=== PATIENT | male | born 1975 | race Caucasian/White ===

== ENCOUNTER 2021-04-29 09:35 | Inpatient (IN) ==
[2021-04-29] MEDS ORDERED: *HR* Rocuronium Bromide 50 MG/5 ML VIAL IVP ONE (10:13)
[2021-04-29] MEDS ORDERED: *HR* Midazolam HCl 5 MG/5 ML VIAL IVP ONE (10:13)
[2021-04-29] MEDS ORDERED: Naloxone 0.4 MG/ML INJ IVP PRN (12:44)
[2021-04-29] MEDS: Cisatracurium 200 MG in 0.9 % Sodium Chloride 180 ML IVC SCH ×2 (12:45→20:56)
[2021-04-29] MEDS: FentaNYL (PF) 1,000 MCG/100 ML IV.SOLN IVC SCH ×2 (12:45→21:32)
[2021-04-29 13:15] LABS: Basophils % 0.2 %; Eosinophils # 0.1 K/mcL (0.0-0.6); Eosinophils % 0.3 %; Hematocrit 45.3 % (37.5-50.1); Hemoglobin 15.4 g/dL (12.9-16.9); Immature Granulocytes % 2.3 % (0-4); Lymphocytes # 1.1 K/mcL (0.6-4.6); Lymphocytes % 6.9 %; Mean Corpuscular Hemoglobin 30.4 pg (28.0-33.3); Mean Corpuscular Volume 89.5 fL (83.0-100.0); Mean Platelet Volume 10.1 fL (9.4-12.4); Monocytes # 1.2 K/mcL (0.0-1.3); Monocytes % 7.1 %; Neutrophils # 13.7 K/mcL (1.6-8.9); Nucleated Red Blood Cells 0.1 /100 WBC (0); Platelet Count 180 K/mcL (140-400); Red Blood Count 5.06 M/mcL (4.19-5.50); Red Cell Distribution Width 13.4 % (11.5-14.5); Segmented Neutrophils % 83.2 %; White Blood Count 16.4 K/mcL (4.3-11.1)
[2021-04-29 13:18] LABS: ABG Base Excess -2 mEq/L (-2 to 3); ABG HCO3 30 mEq/L (21-27); ABG Oxygen Saturation 99 % (95-98); ABG PCO2 82 mmHg (35-45); ABG PH 7.17 pH Units (7.32-7.45); ABG PO2 196 mmHg (85-104); ABG TCO2 32 mEq/L (20-26); Blood Gas Modality VC; Blood Gas VT 450 cc
[2021-04-29 13:23] LABS: VBG Ionized Calcium 1.16 mmol/L (1.15-1.35)
[2021-04-29 13:29] LABS: INR 1.2; Prothrombin Time 13.9 Seconds (9.4-12.1)
[2021-04-29 13:34] LABS: Alanine Aminotransferase 42 Units/L (7-52); Albumin 3.4 g/dL (3.5-5.7); Albumin/Globulin Ratio 1.2 (1.1-2.2); Aspartate Amino Transferase 77 Units/L (13-39); BUN/Creatinine Ratio 22 (6-26); Bilirubin,Total 1.3 mg/dL (0.3-1.0); Blood Urea Nitrogen 15 mg/dL (6-20); Calcium 8.2 mg/dL (8.6-10.3); Carbon Dioxide 28 mEq/L (23-29); Chloride 98 mEq/L (98-107); Globulin 2.8 g/dL (2.4-3.5); Glucose 222 mg/dL (70-105); Magnesium 1.7 mg/dL (1.6-2.6); Osmolality,Calculated 288 (280-300); Phosphorous 4.1 mg/dL (2.7-4.5); Potassium 3.9 mEq/L (3.5-5.1); Sodium 135 mEq/L (136-145); Total Protein 6.2 g/dL (6.4-8.9); eGFR For African Americans > 60 (> 60); eGFR For Non-African Americans > 60 (> 60)
[2021-04-29 14:45] LABS: Alkaline Phosphatase 88 Units/L (34-104)
[2021-04-29] MEDS: Pantoprazole 40 MG VIAL IVP SCH (15:00)
[2021-04-29] MEDS: Dexamethasone Sodium Phos/PF 10 MG/ML VIAL IVP SCH (15:01)
[2021-04-29 16:02] LABS: C-Reactive Protein 55 mg/L (Less than 10)
[2021-04-29] MEDS: Furosemide 40 MG/4 ML VIAL IVP SCH (17:35)
[2021-04-29] MEDS: *HR* Enoxaparin 40 MG/0.4 ML SYRINGE SQ SCH (17:36)
[2021-04-29 17:45] LABS: ABG Base Excess 1 mEq/L (-2 to 3); ABG HCO3 29 mEq/L (21-27); ABG Oxygen Saturation 100 % (95-98); ABG PCO2 60 mmHg (35-45); ABG PO2 260 mmHg (85-104); ABG TCO2 31 mEq/L (20-26); Blood Gas Modality AF; Blood Gas VT 450 cc
[2021-04-30] MEDS ORDERED: Artificial Tears SOLN 15 ML BOTTLE BOTH EYES PRN (00:20)
[2021-04-30] MEDS ORDERED: Dextrose Gel 15 GM/37.5 ML TUBE PO PRN ×2 (00:20)
[2021-04-30] MEDS ORDERED: D5% in Water 1,000 ML IVC PRN (00:20)
[2021-04-30] MEDS ORDERED: *HR* Dextrose 50 % in Water (Vial) 50 ML VIAL IVP PRN (00:20)
[2021-04-30] MEDS: Insulin LISPRO 300 UNITS/3 ML VIAL SUBQ SCH ×4 (01:26→23:43)
[2021-04-30 04:08] LABS: VBG Ionized Calcium 1.21 mmol/L (1.15-1.35)
[2021-04-30 04:25] LABS: Alanine Aminotransferase 32 Units/L (7-52); Albumin 3.2 g/dL (3.5-5.7); Albumin/Globulin Ratio 1.2 (1.1-2.2); Aspartate Amino Transferase 33 Units/L (13-39); BUN/Creatinine Ratio 29 (6-26); Bilirubin,Total 1.4 mg/dL (0.3-1.0); Blood Urea Nitrogen 23 mg/dL (6-20); C-Reactive Protein 113 mg/L (Less than 10); Calcium 8.7 mg/dL (8.6-10.3); Carbon Dioxide 28 mEq/L (23-29); Chloride 99 mEq/L (98-107); Globulin 2.7 g/dL (2.4-3.5); Glucose 252 mg/dL (70-105); Magnesium 2.5 mg/dL (1.6-2.6); Osmolality,Calculated 292 (280-300); Phosphorous 3.8 mg/dL (2.7-4.5); Potassium 4.4 mEq/L (3.5-5.1); Sodium 135 mEq/L (136-145); Total Protein 5.9 g/dL (6.4-8.9); eGFR For African Americans > 60 (> 60); eGFR For Non-African Americans > 60 (> 60)
[2021-04-30 04:36] LABS: ABG Base Excess 2 mEq/L (-2 to 3); ABG HCO3 29 mEq/L (21-27); ABG Oxygen Saturation 95 % (95-98); ABG PCO2 52 mmHg (35-45); ABG PH 7.35 pH Units (7.32-7.45); ABG PO2 81 mmHg (85-104); ABG TCO2 31 mEq/L (20-26); Blood Gas VT 450 cc
[2021-04-30 04:49] LABS: Alkaline Phosphatase 70 Units/L (34-104)
[2021-04-30 05:43] LABS: Red Blood Count 4.61 M/mcL (4.19-5.50)
[2021-04-30 05:44] LABS: Hematocrit 41.1 % (37.5-50.1); Hemoglobin 14.2 g/dL (12.9-16.9); Mean Corpuscular HGB Conc 34.5 g/dL (31.6-35.5); Mean Corpuscular Hemoglobin 30.8 pg (28.0-33.3); Mean Corpuscular Volume 89.2 fL (83.0-100.0); Mean Platelet Volume 10.6 fL (9.4-12.4); Platelet Count 171 K/mcL (140-400); Red Cell Distribution Width 13.3 % (11.5-14.5)
[2021-04-30] MEDS: Cisatracurium 200 MG in 0.9 % Sodium Chloride 180 ML IVC SCH ×2 (05:45→23:09)
[2021-04-30] MEDS: *HR* Enoxaparin 40 MG/0.4 ML SYRINGE SQ SCH ×3 (05:47→17:15)
[2021-04-30] MEDS: Artificial Tears SOLN 15 ML BOTTLE BOTH EYES SCH ×6 (05:47→23:42)
[2021-04-30] MEDS: Pantoprazole 40 MG VIAL IVP SCH (08:08)
[2021-04-30] MEDS: Furosemide 40 MG/4 ML VIAL IVP SCH ×2 (08:08→17:02)
[2021-04-30] MEDS: Dexamethasone Sodium Phos/PF 10 MG/ML VIAL IVP SCH (08:08)
[2021-04-30] MEDS: Chlorhexidine Rinse 15 ML MOUTHWASH MM SCH ×2 (08:08→20:26)
[2021-04-30] MEDS: FentaNYL (PF) 1,000 MCG/100 ML IV.SOLN IVC SCH ×2 (08:44→18:56)
[2021-04-30] MEDS ORDERED: Insulin LISPRO 300 UNITS/3 ML VIAL SUBQ SCH (12:00)
[2021-04-30] MEDS: Remdesivir 100 MG in 0.9 % Sodium Chloride 100 ML IVPB SCH (13:03)
[2021-04-30] MEDS ORDERED: Ipratropium 1 PUFF INHALER IH PRN (14:32)
[2021-04-30] MEDS: Norepinephrine 4 MG/254 ML IV.SOLN IVC SCH ×3 (17:15→21:30)
[2021-05-01] MEDS: Artificial Tears SOLN 15 ML BOTTLE BOTH EYES SCH ×6 (03:23→23:29)
[2021-05-01 04:25] LABS: Hemoglobin 14.8 g/dL (12.9-16.9); Mean Corpuscular HGB Conc 33.6 g/dL (31.6-35.5); Mean Corpuscular Hemoglobin 30.1 pg (28.0-33.3); Mean Corpuscular Volume 89.4 fL (83.0-100.0); Mean Platelet Volume 10.7 fL (9.4-12.4); Platelet Count 219 K/mcL (140-400); Red Blood Count 4.92 M/mcL (4.19-5.50); Red Cell Distribution Width 13.2 % (11.5-14.5); White Blood Count 11.7 K/mcL (4.3-11.1)
[2021-05-01 04:35] LABS: Alanine Aminotransferase 33 Units/L (7-52); Albumin 3.3 g/dL (3.5-5.7); Albumin/Globulin Ratio 1.1 (1.1-2.2); Alkaline Phosphatase 70 Units/L (34-104); Aspartate Amino Transferase 27 Units/L (13-39); BUN/Creatinine Ratio 40 (6-26); Blood Urea Nitrogen 45 mg/dL (6-20); C-Reactive Protein 70 mg/L (Less than 10); Calcium 9.1 mg/dL (8.6-10.3); Carbon Dioxide 30 mEq/L (23-29); Chloride 101 mEq/L (98-107); Globulin 2.9 g/dL (2.4-3.5); Glucose 214 mg/dL (70-105); Magnesium 2.8 mg/dL (1.6-2.6); Osmolality,Calculated 304 (280-300); Phosphorous 4.3 mg/dL (2.7-4.5); Potassium 4.3 mEq/L (3.5-5.1); Sodium 138 mEq/L (136-145); Total Protein 6.2 g/dL (6.4-8.9); eGFR For African Americans > 60 (> 60); eGFR For Non-African Americans > 60 (> 60)
[2021-05-01 04:35] LABS: VBG Ionized Calcium 1.25 mmol/L (1.15-1.35)
[2021-05-01] MEDS: FentaNYL (PF) 1,000 MCG/100 ML IV.SOLN IVC SCH ×3 (05:03→23:29)
[2021-05-01 05:22] LABS: ABG Base Excess 3 mEq/L (-2 to 3); ABG HCO3 30 mEq/L (21-27); ABG Oxygen Saturation 99 % (95-98); ABG PCO2 56 mmHg (35-45); ABG PH 7.34 pH Units (7.32-7.45); ABG PO2 159 mmHg (85-104); ABG TCO2 32 mEq/L (20-26); Blood Gas VT 450 cc
[2021-05-01] MEDS: Cisatracurium 200 MG in 0.9 % Sodium Chloride 180 ML IVC SCH ×3 (05:55→20:26)
[2021-05-01] MEDS: Insulin LISPRO 300 UNITS/3 ML VIAL SUBQ SCH ×4 (06:39→18:05)
[2021-05-01] MEDS: *HR* Enoxaparin 40 MG/0.4 ML SYRINGE SQ SCH ×2 (07:30→17:10)
[2021-05-01] MEDS: Pantoprazole 40 MG VIAL IVP SCH (07:43)
[2021-05-01] MEDS: Chlorhexidine Rinse 15 ML MOUTHWASH MM SCH ×2 (07:44→20:23)
[2021-05-01] MEDS: Dexamethasone Sodium Phos/PF 10 MG/ML VIAL IVP SCH (07:44)
[2021-05-01] MEDS: Furosemide 40 MG/4 ML VIAL IVP SCH (07:44)
[2021-05-01] MEDS: Remdesivir 100 MG in 0.9 % Sodium Chloride 100 ML IVPB SCH (11:33)
[2021-05-01] MEDS ORDERED: Insulin LISPRO 300 UNITS/3 ML VIAL SUBQ SCH (18:12)
[2021-05-01] MEDS: Insulin DETEMIR 100 UNIT/ML X5UNITS SUBQ SCH (20:23)
[2021-05-02] MEDS: Insulin LISPRO 300 UNITS/3 ML VIAL SUBQ SCH ×6 (00:59→19:37)
[2021-05-02 03:58] LABS: ABG Base Excess 4 mEq/L (-2 to 3); ABG HCO3 32 mEq/L (21-27); ABG Oxygen Saturation 99 % (95-98); ABG PCO2 59 mmHg (35-45); ABG PH 7.34 pH Units (7.32-7.45); ABG PO2 170 mmHg (85-104); ABG TCO2 33 mEq/L (20-26); Blood Gas VT 450 cc
[2021-05-02 04:04] LABS: Basophils % 0.2 %; Hematocrit 43.1 % (37.5-50.1); Hemoglobin 14.5 g/dL (12.9-16.9); Lymphocytes # 1.1 K/mcL (0.6-4.6); Mean Corpuscular HGB Conc 33.6 g/dL (31.6-35.5); Mean Corpuscular Hemoglobin 30.4 pg (28.0-33.3); Mean Corpuscular Volume 90.4 fL (83.0-100.0); Mean Platelet Volume 10.7 fL (9.4-12.4); Monocytes # 1.5 K/mcL (0.0-1.3); Monocytes % 12.2 %; Neutrophils # 9.7 K/mcL (1.6-8.9); Platelet Count 241 K/mcL (140-400); Red Blood Count 4.77 M/mcL (4.19-5.50); Red Cell Distribution Width 13.2 % (11.5-14.5); Segmented Neutrophils % 77.6 %; White Blood Count 12.5 K/mcL (4.3-11.1)
[2021-05-02] MEDS: Cisatracurium 200 MG in 0.9 % Sodium Chloride 180 ML IVC SCH (04:07)
[2021-05-02 04:10] LABS: VBG Ionized Calcium 1.29 mmol/L (1.15-1.35)
[2021-05-02 04:12] LABS: INR 1.1; Prothrombin Time 13.1 Seconds (9.4-12.1)
[2021-05-02 04:23] LABS: Alanine Aminotransferase 36 Units/L (7-52); Albumin 3.2 g/dL (3.5-5.7); Albumin/Globulin Ratio 1.1 (1.1-2.2); Alkaline Phosphatase 63 Units/L (34-104); Aspartate Amino Transferase 22 Units/L (13-39); BUN/Creatinine Ratio 45 (6-26); Bilirubin,Total 0.9 mg/dL (0.3-1.0); Blood Urea Nitrogen 39 mg/dL (6-20); C-Reactive Protein 31 mg/L (Less than 10); Calcium 9.1 mg/dL (8.6-10.3); Carbon Dioxide 31 mEq/L (23-29); Chloride 103 mEq/L (98-107); Globulin 2.8 g/dL (2.4-3.5); Glucose 274 mg/dL (70-105); Magnesium 2.6 mg/dL (1.6-2.6); Osmolality,Calculated 309 (280-300); Potassium 4.4 mEq/L (3.5-5.1); Sodium 140 mEq/L (136-145); eGFR For African Americans > 60 (> 60); eGFR For Non-African Americans > 60 (> 60)
[2021-05-02 04:29] LABS: Platelet Estimate Normal (Normal); Reactive Lymphocytes Present (Not Present)
[2021-05-02] MEDS: Artificial Tears SOLN 15 ML BOTTLE BOTH EYES SCH ×5 (05:00→19:50)
[2021-05-02] MEDS: *HR* Enoxaparin 40 MG/0.4 ML SYRINGE SQ SCH ×2 (05:03→17:26)
[2021-05-02] MEDS: FentaNYL (PF) 1,000 MCG/100 ML IV.SOLN IVC SCH ×3 (05:12→17:28)
[2021-05-02] MEDS: Chlorhexidine Rinse 15 ML MOUTHWASH MM SCH ×2 (08:04→19:20)
[2021-05-02] MEDS: Pantoprazole 40 MG VIAL IVP SCH (08:05)
[2021-05-02] MEDS: Dexamethasone Sodium Phos/PF 10 MG/ML VIAL IVP SCH (08:05)
[2021-05-02] MEDS: Insulin DETEMIR 100 UNIT/ML X5UNITS SUBQ SCH ×2 (08:06→21:51)
[2021-05-02] MEDS ORDERED: Furosemide 40 MG/4 ML VIAL IVP SCH (09:00)
[2021-05-02] MEDS: Norepinephrine 4 MG/254 ML IV.SOLN IVC SCH (15:54)
[2021-05-02] MEDS ORDERED: FentaNYL (PF) 1,000 MCG/100 ML IV.SOLN IVC SCH (18:05)
[2021-05-02] MEDS ORDERED: Dexmedetomidine HCl 400 MCG/100 ML MLS IVC ONE (18:42)
[2021-05-02] MEDS: Dexmedetomidine HCl 400 MCG/100 ML MLS IVC SCH (18:49)
[2021-05-02] MEDS: FentaNYL (PF) 2,500 MCG/50 ML IV.SOLN IVC SCH (23:09)
[2021-05-03] MEDS: Insulin LISPRO 300 UNITS/3 ML VIAL SUBQ SCH ×6 (00:13→20:49)
[2021-05-03] MEDS: Artificial Tears SOLN 15 ML BOTTLE BOTH EYES SCH ×6 (00:14→20:14)
[2021-05-03] MEDS: Dexmedetomidine HCl 400 MCG/100 ML MLS IVC SCH ×3 (02:45→20:44)
[2021-05-03 03:57] LABS: ABG Base Excess 6 mEq/L (-2 to 3); ABG HCO3 32 mEq/L (21-27); ABG Oxygen Saturation 90 % (95-98); ABG PCO2 50 mmHg (35-45); ABG PH 7.41 pH Units (7.32-7.45); ABG PO2 58 mmHg (85-104); ABG TCO2 33 mEq/L (20-26); Blood Gas VT 450 cc
[2021-05-03 04:12] LABS: VBG Ionized Calcium 1.27 mmol/L (1.15-1.35)
[2021-05-03 04:20] LABS: Hematocrit 39.6 % (37.5-50.1); Hemoglobin 13.4 g/dL (12.9-16.9); Mean Corpuscular HGB Conc 33.8 g/dL (31.6-35.5); Mean Corpuscular Hemoglobin 30.7 pg (28.0-33.3); Mean Corpuscular Volume 90.6 fL (83.0-100.0); Mean Platelet Volume 11.1 fL (9.4-12.4); Platelet Count 253 K/mcL (140-400); Red Blood Count 4.37 M/mcL (4.19-5.50); Red Cell Distribution Width 12.9 % (11.5-14.5); White Blood Count 11.1 K/mcL (4.3-11.1)
[2021-05-03 04:35] LABS: Alanine Aminotransferase 34 Units/L (7-52); Albumin/Globulin Ratio 1.2 (1.1-2.2); Alkaline Phosphatase 54 Units/L (34-104); Aspartate Amino Transferase 24 Units/L (13-39); BUN/Creatinine Ratio 42 (6-26); Bilirubin,Total 0.8 mg/dL (0.3-1.0); Blood Urea Nitrogen 58 mg/dL (6-20); C-Reactive Protein 16 mg/L (Less than 10); Carbon Dioxide 32 mEq/L (23-29); Chloride 103 mEq/L (98-107); Globulin 2.6 g/dL (2.4-3.5); Glucose 240 mg/dL (70-105); Magnesium 2.7 mg/dL (1.6-2.6); Osmolality,Calculated 318 (280-300); Potassium 4.4 mEq/L (3.5-5.1); Sodium 142 mEq/L (136-145); Total Protein 5.6 g/dL (6.4-8.9); eGFR For African Americans > 60 (> 60); eGFR For Non-African Americans 55 (> 60)
[2021-05-03] MEDS: *HR* Enoxaparin 40 MG/0.4 ML SYRINGE SQ SCH ×2 (05:40→17:15)
[2021-05-03] MEDS: FentaNYL (PF) 2,500 MCG/50 ML IV.SOLN IVC SCH ×2 (06:26→19:37)
[2021-05-03] MEDS: Pantoprazole 40 MG VIAL IVP SCH (10:10)
[2021-05-03] MEDS: Chlorhexidine Rinse 15 ML MOUTHWASH MM SCH ×2 (10:10→20:14)
[2021-05-03] MEDS: Dexamethasone Sodium Phos/PF 10 MG/ML VIAL IVP SCH (10:10)
[2021-05-03] MEDS: Insulin DETEMIR 100 UNIT/ML X5UNITS SUBQ SCH ×2 (10:25→20:14)
[2021-05-03 11:12] LABS: Triglycerides 727 mg/dL (< 150)
[2021-05-03] MEDS ORDERED: D10% in Water 500 ML IVC PRN (11:51)
[2021-05-03] MEDS: Norepinephrine 4 MG/254 ML IV.SOLN IVC SCH (12:40)
[2021-05-03] MEDS: Clinimix E 5%-15% SOLUTION 2,000 ML with MVI, adult with vitamin K 10 ML IVC SCH (16:33)
[2021-05-04] MEDS: Artificial Tears SOLN 15 ML BOTTLE BOTH EYES SCH ×7 (00:44→23:05)
[2021-05-04] MEDS: Insulin LISPRO 300 UNITS/3 ML VIAL SUBQ SCH ×5 (00:45→11:23)
[2021-05-04 04:03] LABS: Hematocrit 40.6 % (37.5-50.1); Hemoglobin 13.5 g/dL (12.9-16.9); Mean Corpuscular HGB Conc 33.3 g/dL (31.6-35.5); Mean Corpuscular Hemoglobin 30.4 pg (28.0-33.3); Mean Corpuscular Volume 91.4 fL (83.0-100.0); Mean Platelet Volume 11.1 fL (9.4-12.4); Platelet Count 237 K/mcL (140-400); Red Blood Count 4.44 M/mcL (4.19-5.50); Red Cell Distribution Width 12.9 % (11.5-14.5)
[2021-05-04 04:16] LABS: ABG Base Excess 5 mEq/L (-2 to 3); ABG HCO3 31 mEq/L (21-27); ABG Oxygen Saturation 90 % (95-98); ABG PCO2 49 mmHg (35-45); ABG PH 7.41 pH Units (7.32-7.45); ABG PO2 59 mmHg (85-104); ABG TCO2 33 mEq/L (20-26); Blood Gas VT 450 cc
[2021-05-04] MEDS: *HR* Enoxaparin 40 MG/0.4 ML SYRINGE SQ SCH ×2 (05:58→17:04)
[2021-05-04 06:43] LABS: Alanine Aminotransferase 30 Units/L (7-52); Albumin/Globulin Ratio 1.1 (1.1-2.2); Alkaline Phosphatase 51 Units/L (34-104); Aspartate Amino Transferase 19 Units/L (13-39); BUN/Creatinine Ratio 43 (6-26); Bilirubin,Total 0.9 mg/dL (0.3-1.0); Blood Urea Nitrogen 55 mg/dL (6-20); C-Reactive Protein 11 mg/L (Less than 10); Calcium 9.1 mg/dL (8.6-10.3); Carbon Dioxide 32 mEq/L (23-29); Chloride 105 mEq/L (98-107); Globulin 2.8 g/dL (2.4-3.5); Glucose 318 mg/dL (70-105); Magnesium 2.8 mg/dL (1.6-2.6); Osmolality,Calculated 323 (280-300); Phosphorous 4.6 mg/dL (2.7-4.5); Potassium 4.5 mEq/L (3.5-5.1); Sodium 143 mEq/L (136-145); Total Protein 5.8 g/dL (6.4-8.9); eGFR For African Americans > 60 (> 60); eGFR For Non-African Americans > 60 (> 60)
[2021-05-04] MEDS ORDERED: Furosemide 40 MG/4 ML VIAL IVP ONE (07:12)
[2021-05-04] MEDS: Dexamethasone Sodium Phos/PF 10 MG/ML VIAL IVP SCH (07:26)
[2021-05-04] MEDS: Pantoprazole 40 MG VIAL IVP SCH ×2 (07:27→20:11)
[2021-05-04] MEDS: Chlorhexidine Rinse 15 ML MOUTHWASH MM SCH ×2 (07:27→20:11)
[2021-05-04] MEDS: Insulin DETEMIR 100 UNIT/ML X5UNITS SUBQ SCH (09:04)
[2021-05-04] MEDS ORDERED: Insulin DETEMIR 100 UNIT/ML X5UNITS SUBQ ONE (11:00)
[2021-05-04] MEDS: Metoclopramide 10 MG/2 ML VIAL IVP SCH ×3 (11:21→23:04)
[2021-05-04] MEDS: Dexmedetomidine HCl 400 MCG/100 ML MLS IVC SCH ×3 (16:14→21:30)
[2021-05-04] MEDS ORDERED: Clinimix 5%-20% SOLUTION 2,000 ML with MVI, adult with vitamin K 10 ML, Sodium Phosph... IVC SCH (17:00)
[2021-05-04] MEDS: Norepinephrine 4 MG/254 ML IV.SOLN IVC SCH (17:47)
[2021-05-04] MEDS: Clinimix E 5%-15% SOLUTION 2,000 ML with MVI, adult with vitamin K 10 ML IVC SCH (17:59)
[2021-05-04] MEDS: FentaNYL (PF) 2,500 MCG/50 ML IV.SOLN IVC SCH (19:01)
[2021-05-04 19:07] LABS: VBG Ionized Calcium 1.31 mmol/L (1.15-1.35)
[2021-05-04] MEDS: Docusate Oral Soln 100 MG/10 ML UDC GTUBE SCH (20:11)
[2021-05-04] MEDS ORDERED: Insulin DETEMIR 100 UNIT/ML X5UNITS SUBQ SCH (21:00)
[2021-05-05] MEDS: Dexmedetomidine HCl 400 MCG/100 ML MLS IVC SCH ×5 (02:25→23:38)
[2021-05-05 03:09] LABS: Hematocrit 42.7 % (37.5-50.1); Mean Corpuscular HGB Conc 32.8 g/dL (31.6-35.5); Mean Corpuscular Volume 91.6 fL (83.0-100.0); Mean Platelet Volume 11.2 fL (9.4-12.4); Platelet Count 236 K/mcL (140-400); Red Blood Count 4.66 M/mcL (4.19-5.50); Red Cell Distribution Width 12.7 % (11.5-14.5); White Blood Count 11.6 K/mcL (4.3-11.1)
[2021-05-05] MEDS: Artificial Tears SOLN 15 ML BOTTLE BOTH EYES SCH ×6 (03:09→23:18)
[2021-05-05 03:29] LABS: Alanine Aminotransferase 36 Units/L (7-52); Albumin 3.2 g/dL (3.5-5.7); Albumin/Globulin Ratio 1.1 (1.1-2.2); Alkaline Phosphatase 53 Units/L (34-104); Aspartate Amino Transferase 26 Units/L (13-39); BUN/Creatinine Ratio 44 (6-26); Bilirubin,Total 0.8 mg/dL (0.3-1.0); Blood Urea Nitrogen 51 mg/dL (6-20); C-Reactive Protein 7 mg/L (Less than 10); Calcium 9.6 mg/dL (8.6-10.3); Carbon Dioxide 36 mEq/L (23-29); Chloride 105 mEq/L (98-107); Glucose 194 mg/dL (70-105); Magnesium 2.8 mg/dL (1.6-2.6); Osmolality,Calculated 319 (280-300); Potassium 4.2 mEq/L (3.5-5.1); Sodium 145 mEq/L (136-145); Total Protein 6.2 g/dL (6.4-8.9); eGFR For African Americans > 60 (> 60); eGFR For Non-African Americans > 60 (> 60)
[2021-05-05 05:00] LABS: ABG Base Excess -1 mEq/L (-2 to 3); ABG HCO3 23 mEq/L (21-27); ABG Oxygen Saturation 94 % (95-98); ABG PCO2 35 mmHg (35-45); ABG PH 7.43 pH Units (7.32-7.45); ABG PO2 68 mmHg (85-104); ABG TCO2 24 mEq/L (20-26); Blood Gas VT 450 cc
[2021-05-05] MEDS: *HR* Enoxaparin 40 MG/0.4 ML SYRINGE SQ SCH ×2 (05:00→18:00)
[2021-05-05] MEDS: Metoclopramide 10 MG/2 ML VIAL IVP SCH ×4 (05:01→23:19)
[2021-05-05] MEDS: Chlorhexidine Rinse 15 ML MOUTHWASH MM SCH ×2 (07:44→19:56)
[2021-05-05] MEDS: Docusate Oral Soln 100 MG/10 ML UDC GTUBE SCH ×2 (07:44→19:57)
[2021-05-05] MEDS: Pantoprazole 40 MG VIAL IVP SCH ×2 (07:44→19:57)
[2021-05-05] MEDS: Dexamethasone Sodium Phos/PF 10 MG/ML VIAL IVP SCH (07:44)
[2021-05-05] MEDS: FentaNYL (PF) 2,500 MCG/50 ML IV.SOLN IVC SCH ×2 (07:47→19:53)
[2021-05-05 08:17] LABS: Phosphorous 5.1 mg/dL (2.7-4.5)
[2021-05-05 14:23] LABS: Bacteria,Urine Few per hpf (None-Few); Bilirubin,Urine Negative (Negative); Blood,Urine Small (Negative); Clarity,Urine Turbid (Clear); Color,Urine Yellow (Yellow); Glucose,Urine (UA) Normal (Normal); Hyaline Casts,Urine Many per lpf (None Seen); Ketones,Urine Negative (Negative); Leukocyte Esterase,Urine Negative (Negative); Mucus,Urine Few per lpf (None-Few); Nitrite,Urine Negative (Negative); Protein,Urine 30 mg/dL (Neg-Trace); Specific Gravity,Urine 1.029 (1.010-1.025); Squamous Epithelial Cell,Urine Few per hpf (None-Few)
[2021-05-05] MEDS ORDERED: Furosemide 40 MG/4 ML VIAL IVP ONE (14:44)
[2021-05-05] MEDS: Norepinephrine 4 MG/254 ML IV.SOLN IVC SCH (15:06)
[2021-05-05] MEDS: Cisatracurium 200 MG in 0.9 % Sodium Chloride 180 ML IVC SCH (15:07)
[2021-05-05] MEDS: Piperacillin/Tazobactam 3.375 GM in 0.9 % Sodium Chloride Mini Bag 100 ML IVPB SCH ×2 (15:07→21:01)
[2021-05-05] MEDS ORDERED: Acetaminophen IV 500 MG/50 ML BAG IVPB ONE (15:53)
[2021-05-05] MEDS: Clinimix 5%-20% SOLUTION 2,000 ML with MVI, adult with vitamin K 10 ML, Sodium Acetat... IVC SCH ×2 (16:42→18:24)
[2021-05-05] MEDS ORDERED: Clinimix 5%-20% SOLUTION 2,000 ML with MVI, adult with vitamin K 10 ML, Sodium Phosph... IVC SCH (17:00)
[2021-05-05] MEDS: Clinimix E 5%-15% SOLUTION 2,000 ML with MVI, adult with vitamin K 10 ML IVC SCH (19:12)
[2021-05-06] MEDS: Artificial Tears SOLN 15 ML BOTTLE BOTH EYES SCH ×6 (03:16→23:13)
[2021-05-06 03:20] LABS: Hematocrit 44.2 % (37.5-50.1); Hemoglobin 14.1 g/dL (12.9-16.9); Mean Corpuscular HGB Conc 31.9 g/dL (31.6-35.5); Mean Corpuscular Hemoglobin 30.5 pg (28.0-33.3); Mean Corpuscular Volume 95.5 fL (83.0-100.0); Mean Platelet Volume 11.3 fL (9.4-12.4); Platelet Count 209 K/mcL (140-400); Red Blood Count 4.63 M/mcL (4.19-5.50); Red Cell Distribution Width 13.1 % (11.5-14.5); White Blood Count 11.7 K/mcL (4.3-11.1)
[2021-05-06 03:37] LABS: Alanine Aminotransferase 64 Units/L (7-52); Alkaline Phosphatase 50 Units/L (34-104); Aspartate Amino Transferase 48 Units/L (13-39); BUN/Creatinine Ratio 36 (6-26); Bilirubin,Total 1.1 mg/dL (0.3-1.0); Blood Urea Nitrogen 55 mg/dL (6-20); C-Reactive Protein < 5 mg/L (Less than 10); Calcium 9.2 mg/dL (8.6-10.3); Carbon Dioxide 38 mEq/L (23-29); Chloride 105 mEq/L (98-107); Globulin 2.9 g/dL (2.4-3.5); Glucose 162 mg/dL (70-105); Magnesium 2.6 mg/dL (1.6-2.6); Osmolality,Calculated 321 (280-300); Potassium 4.2 mEq/L (3.5-5.1); Sodium 146 mEq/L (136-145); Total Protein 5.9 g/dL (6.4-8.9); eGFR For African Americans > 60 (> 60); eGFR For Non-African Americans 50 (> 60)
[2021-05-06] MEDS: Dexmedetomidine HCl 400 MCG/100 ML MLS IVC SCH ×4 (03:48→20:13)
[2021-05-06 04:19] LABS: ABG Base Excess 8 mEq/L (-2 to 3); ABG HCO3 35 mEq/L (21-27); ABG Oxygen Saturation 91 % (95-98); ABG PCO2 60 mmHg (35-45); ABG PH 7.38 pH Units (7.32-7.45); ABG PO2 64 mmHg (85-104); ABG TCO2 37 mEq/L (20-26); Blood Gas VT 450 cc
[2021-05-06] MEDS: Piperacillin/Tazobactam 3.375 GM in 0.9 % Sodium Chloride Mini Bag 100 ML IVPB SCH ×3 (05:06→21:00)
[2021-05-06] MEDS: Metoclopramide 10 MG/2 ML VIAL IVP SCH ×4 (05:07→23:15)
[2021-05-06] MEDS: *HR* Enoxaparin 40 MG/0.4 ML SYRINGE SQ SCH ×2 (05:07→16:50)
[2021-05-06] MEDS: Chlorhexidine Rinse 15 ML MOUTHWASH MM SCH ×2 (09:24→19:41)
[2021-05-06] MEDS: Dexamethasone Sodium Phos/PF 10 MG/ML VIAL IVP SCH (09:24)
[2021-05-06] MEDS: Docusate Oral Soln 100 MG/10 ML UDC GTUBE SCH ×2 (09:24→19:39)
[2021-05-06] MEDS: Pantoprazole 40 MG VIAL IVP SCH ×2 (09:25→19:40)
[2021-05-06] MEDS: FentaNYL (PF) 2,500 MCG/50 ML IV.SOLN IVC SCH ×2 (10:29→19:06)
[2021-05-06] MEDS: Cisatracurium 200 MG in 0.9 % Sodium Chloride 180 ML IVC SCH (12:43)
[2021-05-06] MEDS: Norepinephrine 4 MG/254 ML IV.SOLN IVC SCH (12:44)
[2021-05-06] MEDS: Clinimix E 5%-15% SOLUTION 2,000 ML with MVI, adult with vitamin K 10 ML IVC SCH (16:52)
[2021-05-06] MEDS ORDERED: Clinimix 5%-20% SOLUTION 2,000 ML with MVI, adult with vitamin K 10 ML, Sodium Acetat... IVC SCH (17:00)
[2021-05-06] MEDS ORDERED: Clinimix 5%-20% SOLUTION 2,000 ML with MVI, adult with vitamin K 10 ML, Sodium Phosph... IVC SCH (17:00)
[2021-05-06 20:52] LABS: VBG Ionized Calcium 1.29 mmol/L (1.15-1.35)
[2021-05-07] MEDS: Dexmedetomidine HCl 400 MCG/100 ML MLS IVC SCH ×8 (00:41→21:04)
[2021-05-07 02:45] LABS: Hematocrit 42.7 % (37.5-50.1); Hemoglobin 13.7 g/dL (12.9-16.9); Mean Corpuscular HGB Conc 32.1 g/dL (31.6-35.5); Mean Corpuscular Hemoglobin 30.4 pg (28.0-33.3); Mean Corpuscular Volume 94.7 fL (83.0-100.0); Mean Platelet Volume 11.3 fL (9.4-12.4); Platelet Count 211 K/mcL (140-400); Red Blood Count 4.51 M/mcL (4.19-5.50); Red Cell Distribution Width 13.1 % (11.5-14.5); White Blood Count 15.6 K/mcL (4.3-11.1)
[2021-05-07] MEDS: Artificial Tears SOLN 15 ML BOTTLE BOTH EYES SCH ×5 (03:04→19:44)
[2021-05-07 03:06] LABS: Alanine Aminotransferase 64 Units/L (7-52); Albumin/Globulin Ratio 1.1 (1.1-2.2); Alkaline Phosphatase 48 Units/L (34-104); Aspartate Amino Transferase 65 Units/L (13-39); BUN/Creatinine Ratio 36 (6-26); Bilirubin,Total 1.1 mg/dL (0.3-1.0); Blood Urea Nitrogen 51 mg/dL (6-20); C-Reactive Protein 7 mg/L (Less than 10); Calcium 9.1 mg/dL (8.6-10.3); Carbon Dioxide 36 mEq/L (23-29); Chloride 105 mEq/L (98-107); Globulin 2.8 g/dL (2.4-3.5); Glucose 157 mg/dL (70-105); Magnesium 2.6 mg/dL (1.6-2.6); Osmolality,Calculated 315 (280-300); Potassium 4.2 mEq/L (3.5-5.1); Sodium 144 mEq/L (136-145); Total Protein 5.8 g/dL (6.4-8.9); eGFR For African Americans > 60 (> 60); eGFR For Non-African Americans 54 (> 60)
[2021-05-07 04:19] LABS: ABG Base Excess 8 mEq/L (-2 to 3); ABG HCO3 35 mEq/L (21-27); ABG Oxygen Saturation 91 % (95-98); ABG PCO2 54 mmHg (35-45); ABG PH 7.42 pH Units (7.32-7.45); ABG PO2 62 mmHg (85-104); ABG TCO2 36 mEq/L (20-26); Blood Gas Modality AF; Blood Gas VT 450 cc
[2021-05-07] MEDS: Piperacillin/Tazobactam 3.375 GM in 0.9 % Sodium Chloride Mini Bag 100 ML IVPB SCH ×3 (05:01→23:47)
[2021-05-07] MEDS: *HR* Enoxaparin 40 MG/0.4 ML SYRINGE SQ SCH ×2 (05:01→17:18)
[2021-05-07] MEDS: Metoclopramide 10 MG/2 ML VIAL IVP SCH (05:02)
[2021-05-07] MEDS: Chlorhexidine Rinse 15 ML MOUTHWASH MM SCH ×2 (07:55→19:45)
[2021-05-07] MEDS: Docusate Oral Soln 100 MG/10 ML UDC GTUBE SCH ×2 (07:55→19:45)
[2021-05-07] MEDS: Pantoprazole 40 MG VIAL IVP SCH ×2 (07:56→19:46)
[2021-05-07] MEDS: Dexamethasone Sodium Phos/PF 10 MG/ML VIAL IVP SCH (07:56)
[2021-05-07] MEDS: FentaNYL (PF) 2,500 MCG/50 ML IV.SOLN IVC SCH (09:06)
[2021-05-07] MEDS: Cisatracurium 200 MG in 0.9 % Sodium Chloride 180 ML IVC SCH (10:36)
[2021-05-07] MEDS: Norepinephrine 4 MG/254 ML IV.SOLN IVC SCH (10:36)
[2021-05-07] MEDS: Clinimix E 5%-15% SOLUTION 2,000 ML with MVI, adult with vitamin K 10 ML IVC SCH (16:42)
[2021-05-07] MEDS ORDERED: Clinimix 5%-20% SOLUTION 2,000 ML with MVI, adult with vitamin K 10 ML, Sodium Acetat... IVC SCH (17:00)
[2021-05-07] MEDS ORDERED: Clinimix 5%-20% SOLUTION 2,000 ML with MVI, adult with vitamin K 10 ML, Sodium Phosph... IVC SCH (17:00)
[2021-05-07 17:22] LABS: VBG Ionized Calcium 1.28 mmol/L (1.15-1.35)
[2021-05-08] MEDS: Artificial Tears SOLN 15 ML BOTTLE BOTH EYES SCH ×7 (00:01→23:15)
[2021-05-08] MEDS: Dexmedetomidine HCl 400 MCG/100 ML MLS IVC SCH ×10 (00:02→22:39)
[2021-05-08] MEDS: FentaNYL (PF) 2,500 MCG/50 ML IV.SOLN IVC SCH ×2 (02:25→18:00)
[2021-05-08 04:44] LABS: ABG Base Excess 7 mEq/L (-2 to 3); ABG HCO3 33 mEq/L (21-27); ABG Oxygen Saturation 94 % (95-98); ABG PCO2 55 mmHg (35-45); ABG PH 7.39 pH Units (7.32-7.45); ABG PO2 75 mmHg (85-104); ABG TCO2 35 mEq/L (20-26); Blood Gas Modality AF; Blood Gas VT 450 cc
[2021-05-08 05:01] LABS: VBG Ionized Calcium 1.29 mmol/L (1.15-1.35)
[2021-05-08 05:12] LABS: Hematocrit 40.7 % (37.5-50.1); Hemoglobin 12.9 g/dL (12.9-16.9); Mean Corpuscular HGB Conc 31.7 g/dL (31.6-35.5); Mean Corpuscular Hemoglobin 30.1 pg (28.0-33.3); Mean Corpuscular Volume 94.9 fL (83.0-100.0); Mean Platelet Volume 11.6 fL (9.4-12.4); Platelet Count 203 K/mcL (140-400); Red Blood Count 4.29 M/mcL (4.19-5.50); Red Cell Distribution Width 13.2 % (11.5-14.5)
[2021-05-08 05:15] LABS: Alanine Aminotransferase 54 Units/L (7-52); Albumin 2.7 g/dL (3.5-5.7); Albumin/Globulin Ratio 0.9 (1.1-2.2); Alkaline Phosphatase 46 Units/L (34-104); Aspartate Amino Transferase 61 Units/L (13-39); BUN/Creatinine Ratio 36 (6-26); Bilirubin,Total 1.1 mg/dL (0.3-1.0); Blood Urea Nitrogen 37 mg/dL (6-20); C-Reactive Protein 28 mg/L (Less than 10); Calcium 8.7 mg/dL (8.6-10.3); Carbon Dioxide 33 mEq/L (23-29); Chloride 107 mEq/L (98-107); Globulin 2.9 g/dL (2.4-3.5); Glucose 145 mg/dL (70-105); Magnesium 2.3 mg/dL (1.6-2.6); Osmolality,Calculated 309 (280-300); Potassium 3.8 mEq/L (3.5-5.1); Sodium 144 mEq/L (136-145); Total Protein 5.6 g/dL (6.4-8.9); eGFR For African Americans > 60 (> 60); eGFR For Non-African Americans > 60 (> 60)
[2021-05-08] MEDS: *HR* Enoxaparin 40 MG/0.4 ML SYRINGE SQ SCH ×2 (05:58→17:41)
[2021-05-08] MEDS: Piperacillin/Tazobactam 3.375 GM in 0.9 % Sodium Chloride Mini Bag 100 ML IVPB SCH ×3 (05:58→20:56)
[2021-05-08] MEDS: Cisatracurium 200 MG in 0.9 % Sodium Chloride 180 ML IVC SCH (08:48)
[2021-05-08] MEDS: Chlorhexidine Rinse 15 ML MOUTHWASH MM SCH ×2 (08:48→19:59)
[2021-05-08] MEDS: Dexamethasone Sodium Phos/PF 10 MG/ML VIAL IVP SCH (08:48)
[2021-05-08] MEDS: Pantoprazole 40 MG VIAL IVP SCH ×2 (08:48→19:59)
[2021-05-08] MEDS: Docusate Oral Soln 100 MG/10 ML UDC GTUBE SCH ×2 (08:48→19:59)
[2021-05-08] MEDS: Furosemide 40 MG/4 ML VIAL IVP SCH (11:50)
[2021-05-08] MEDS ORDERED: Midazolam HCl 50 MG/100 ML IV.SOLN IVC SCH (12:15)
[2021-05-08] MEDS: Norepinephrine 4 MG/254 ML IV.SOLN IVC SCH (13:21)
[2021-05-08] MEDS ORDERED: Clinimix 5%-20% SOLUTION 2,000 ML with MVI, adult with vitamin K 10 ML, Potassium Pho... IVC SCH (17:00)
[2021-05-09] MEDS: Dexmedetomidine HCl 400 MCG/100 ML MLS IVC SCH ×7 (00:36→22:57)
[2021-05-09 03:22] LABS: Hematocrit 39.5 % (37.5-50.1); Hemoglobin 12.7 g/dL (12.9-16.9); Mean Corpuscular HGB Conc 32.2 g/dL (31.6-35.5); Mean Corpuscular Hemoglobin 30.2 pg (28.0-33.3); Mean Platelet Volume 11.3 fL (9.4-12.4); Platelet Count 188 K/mcL (140-400); Red Cell Distribution Width 13.1 % (11.5-14.5); White Blood Count 12.4 K/mcL (4.3-11.1)
[2021-05-09] MEDS: Artificial Tears SOLN 15 ML BOTTLE BOTH EYES SCH ×3 (03:26→13:25)
[2021-05-09 03:42] LABS: Alanine Aminotransferase 51 Units/L (7-52); Albumin 2.7 g/dL (3.5-5.7); Aspartate Amino Transferase 52 Units/L (13-39); BUN/Creatinine Ratio 38 (6-26); Blood Urea Nitrogen 38 mg/dL (6-20); C-Reactive Protein 27 mg/L (Less than 10); Calcium 8.6 mg/dL (8.6-10.3); Carbon Dioxide 33 mEq/L (23-29); Chloride 107 mEq/L (98-107); Globulin 2.7 g/dL (2.4-3.5); Glucose 172 mg/dL (70-105); Magnesium 2.1 mg/dL (1.6-2.6); Osmolality,Calculated 315 (280-300); Potassium 4.1 mEq/L (3.5-5.1); Sodium 146 mEq/L (136-145); Total Protein 5.4 g/dL (6.4-8.9); eGFR For African Americans > 60 (> 60); eGFR For Non-African Americans > 60 (> 60)
[2021-05-09 04:40] LABS: Alkaline Phosphatase 46 Units/L (34-104)
[2021-05-09 04:51] LABS: ABG Base Excess 7 mEq/L (-2 to 3); ABG HCO3 33 mEq/L (21-27); ABG Oxygen Saturation 91 % (95-98); ABG PCO2 51 mmHg (35-45); ABG PH 7.42 pH Units (7.32-7.45); ABG PO2 60 mmHg (85-104); ABG TCO2 35 mEq/L (20-26); Blood Gas VT 450 cc
[2021-05-09] MEDS: Piperacillin/Tazobactam 3.375 GM in 0.9 % Sodium Chloride Mini Bag 100 ML IVPB SCH ×3 (04:59→20:59)
[2021-05-09] MEDS: *HR* Enoxaparin 40 MG/0.4 ML SYRINGE SQ SCH ×2 (04:59→16:30)
[2021-05-09] MEDS: Pantoprazole 40 MG VIAL IVP SCH ×2 (08:13→19:58)
[2021-05-09] MEDS: Chlorhexidine Rinse 15 ML MOUTHWASH MM SCH (08:13)
[2021-05-09] MEDS: Docusate Oral Soln 100 MG/10 ML UDC GTUBE SCH (08:13)
[2021-05-09] MEDS: Furosemide 40 MG/4 ML VIAL IVP SCH (08:15)
[2021-05-09] MEDS ORDERED: Dexamethasone Sodium Phos/PF 10 MG/ML VIAL IVP SCH (09:00)
[2021-05-09] MEDS: FentaNYL (PF) 2,500 MCG/50 ML IV.SOLN IVC SCH (09:12)
[2021-05-09] MEDS ORDERED: Clinimix 5%-20% SOLUTION 2,000 ML with MVI, adult with vitamin K 10 ML, Sodium Acetat... IVC SCH (17:00)
[2021-05-09] MEDS: Docusate Oral Soln 100 MG/10 ML UDC PO SCH (19:57)
[2021-05-10] MEDS: Dexmedetomidine HCl 400 MCG/100 ML MLS IVC SCH ×6 (01:10→19:00)
[2021-05-10] MEDS ORDERED: *HR* LORazepam 2 MG/ML VIAL IVP ONE (01:10)
[2021-05-10 02:02] LABS: Basophils % 0.2 %; Eosinophils % 0.3 %; Hematocrit 40.4 % (37.5-50.1); Hemoglobin 13.3 g/dL (12.9-16.9); Immature Granulocytes % 0.6 % (0-4); Lymphocytes # 0.9 K/mcL (0.6-4.6); Lymphocytes % 7.4 %; Mean Corpuscular HGB Conc 32.9 g/dL (31.6-35.5); Mean Corpuscular Hemoglobin 30.2 pg (28.0-33.3); Mean Corpuscular Volume 91.6 fL (83.0-100.0); Mean Platelet Volume 11.3 fL (9.4-12.4); Monocytes # 1.5 K/mcL (0.0-1.3); Monocytes % 11.9 %; Neutrophils # 9.8 K/mcL (1.6-8.9); Platelet Count 203 K/mcL (140-400); Red Blood Count 4.41 M/mcL (4.19-5.50); Segmented Neutrophils % 79.6 %; White Blood Count 12.4 K/mcL (4.3-11.1)
[2021-05-10 02:11] LABS: VBG HCO3 32 mEq/L (21-27); VBG PCO2 51 mmHg (41-51); VBG PO2 68 mmHg (25-50)
[2021-05-10 02:20] LABS: BUN/Creatinine Ratio 41 (6-26); Blood Urea Nitrogen 35 mg/dL (6-20); Calcium 8.6 mg/dL (8.6-10.3); Carbon Dioxide 33 mEq/L (23-29); Chloride 108 mEq/L (98-107); Glucose 167 mg/dL (70-105); Osmolality,Calculated 312 (280-300); Phosphorous 2.2 mg/dL (2.7-4.5); Potassium 3.6 mEq/L (3.5-5.1); Sodium 145 mEq/L (136-145); eGFR For African Americans > 60 (> 60); eGFR For Non-African Americans > 60 (> 60)
[2021-05-10] MEDS ORDERED: Dexmedetomidine HCl 400 MCG/100 ML MLS IVC ONE (03:26)
[2021-05-10] MEDS: Piperacillin/Tazobactam 3.375 GM in 0.9 % Sodium Chloride Mini Bag 100 ML IVPB SCH ×3 (05:12→22:54)
[2021-05-10] MEDS: *HR* Enoxaparin 40 MG/0.4 ML SYRINGE SQ SCH ×2 (05:12→18:00)
[2021-05-10] MEDS: Norepinephrine 4 MG/254 ML IV.SOLN IVC SCH (05:29)
[2021-05-10] MEDS: Cisatracurium 200 MG in 0.9 % Sodium Chloride 180 ML IVC SCH (05:29)
[2021-05-10] MEDS: Pantoprazole 40 MG VIAL IVP SCH (09:07)
[2021-05-10] MEDS: Docusate Oral Soln 100 MG/10 ML UDC PO SCH ×2 (11:23→20:12)
[2021-05-10] MEDS ORDERED: *HR* Dextrose 50 % in Water (Syg) 50 ML SYRINGE IVP PRN (12:15)
[2021-05-10] MEDS ORDERED: Furosemide 40 MG/4 ML VIAL IVP SCH (14:45)
[2021-05-10] MEDS ORDERED: Potassium Phosphate 44 MEQ in 0.9 % Sodium Chloride 250 ML IVPB ONE (15:30)
[2021-05-10] MEDS: Potassium Chloride Elixir 20 MEQ/15 ML UDC PO SCH (15:40)
[2021-05-10] MEDS ORDERED: Clinimix 5%-20% SOLUTION 2,000 ML with MVI, adult with vitamin K 10 ML, Sodium Acetat... IVC SCH (17:00)
[2021-05-10] MEDS ORDERED: QUEtiapine Fumarate 25 MG TABLET PO SCH (21:00)
[2021-05-10] MEDS ORDERED: Pantoprazole 40 MG VIAL IVP ONE (21:00)
[2021-05-11 02:49] LABS: Basophils % 0.2 %; Eosinophils # 0.2 K/mcL (0.0-0.6); Eosinophils % 1.4 %; Hematocrit 42.1 % (37.5-50.1); Hemoglobin 13.6 g/dL (12.9-16.9); Immature Granulocytes % 0.5 % (0-4); Lymphocytes # 1.4 K/mcL (0.6-4.6); Lymphocytes % 9.7 %; Mean Corpuscular HGB Conc 32.3 g/dL (31.6-35.5); Mean Corpuscular Volume 92.9 fL (83.0-100.0); Mean Platelet Volume 11.2 fL (9.4-12.4); Monocytes # 1.6 K/mcL (0.0-1.3); Monocytes % 11.1 %; Neutrophils # 11.3 K/mcL (1.6-8.9); Platelet Count 233 K/mcL (140-400); Red Blood Count 4.53 M/mcL (4.19-5.50); Red Cell Distribution Width 13.2 % (11.5-14.5); Segmented Neutrophils % 77.1 %; White Blood Count 14.6 K/mcL (4.3-11.1)
[2021-05-11 03:05] LABS: BUN/Creatinine Ratio 36 (6-26); Blood Urea Nitrogen 28 mg/dL (6-20); Calcium 8.6 mg/dL (8.6-10.3); Carbon Dioxide 32 mEq/L (23-29); Chloride 108 mEq/L (98-107); Glucose 117 mg/dL (70-105); Magnesium 1.9 mg/dL (1.6-2.6); Osmolality,Calculated 311 (280-300); Phosphorous 2.8 mg/dL (2.7-4.5); Potassium 3.1 mEq/L (3.5-5.1); Sodium 147 mEq/L (136-145); Triglycerides 160 mg/dL (< 150); eGFR For African Americans > 60 (> 60); eGFR For Non-African Americans > 60 (> 60)
[2021-05-11] MEDS: Piperacillin/Tazobactam 3.375 GM in 0.9 % Sodium Chloride Mini Bag 100 ML IVPB SCH ×3 (05:36→22:34)
[2021-05-11] MEDS: *HR* Enoxaparin 40 MG/0.4 ML SYRINGE SQ SCH ×2 (05:36→17:28)
[2021-05-11] MEDS: Docusate Oral Soln 100 MG/10 ML UDC PO SCH ×2 (07:10→20:45)
[2021-05-11] MEDS: Potassium Chloride Elixir 20 MEQ/15 ML UDC PO SCH (07:31)
[2021-05-11] MEDS ORDERED: Acetaminophen 325 MG TABLET PO PRN ×2 (09:22→13:37)
[2021-05-11] MEDS ORDERED: D10% in Water 500 ML IVC PRN (13:37)
[2021-05-11] MEDS ORDERED: *HR* Dextrose 50 % in Water (Syg) 50 ML SYRINGE IVP PRN (13:37)
[2021-05-11] MEDS ORDERED: D5% in Water 1,000 ML IVC PRN (13:37)
[2021-05-11] MEDS ORDERED: Ipratropium 1 PUFF INHALER IH PRN (13:37)
[2021-05-11] MEDS ORDERED: Naloxone 0.4 MG/ML INJ IVP PRN (13:37)
[2021-05-11] MEDS ORDERED: Clinimix 5%-20% SOLUTION 2,000 ML with MVI, adult with vitamin K 10 ML, Sodium Acetat... IVC SCH ×2 (13:37→17:00)
[2021-05-11] MEDS ORDERED: Dextrose Gel 15 GM/37.5 ML TUBE PO PRN ×2 (13:37)
[2021-05-11 13:38] LABS: Estimated Average Glucose 171 mg/dl; Hemoglobin A1C 7.6 %
[2021-05-11 13:49] LABS: BUN/Creatinine Ratio 34 (6-26); Blood Urea Nitrogen 27 mg/dL (6-20); Calcium 8.7 mg/dL (8.6-10.3); Carbon Dioxide 32 mEq/L (23-29); Chloride 108 mEq/L (98-107); Glucose 174 mg/dL (70-105); Osmolality,Calculated 311 (280-300); Potassium 3.5 mEq/L (3.5-5.1); Sodium 146 mEq/L (136-145); eGFR For African Americans > 60 (> 60); eGFR For Non-African Americans > 60 (> 60)
[2021-05-11] MEDS ORDERED: Clinimix 5%-20% SOLUTION 2,000 ML, Parenteral Amino Acid 10% 0 ML with MVI, adult with... IVC SCH (17:00)
[2021-05-11] MEDS: QUEtiapine Fumarate 25 MG TABLET PO SCH (20:45)
[2021-05-12] MEDS: *HR* Enoxaparin 40 MG/0.4 ML SYRINGE SQ SCH ×2 (05:03→17:34)
[2021-05-12] MEDS: Piperacillin/Tazobactam 3.375 GM in 0.9 % Sodium Chloride Mini Bag 100 ML IVPB SCH ×3 (05:04→22:07)
[2021-05-12] MEDS: Potassium Chloride Elixir 20 MEQ/15 ML UDC PO SCH (08:57)
[2021-05-12] MEDS: Insulin DETEMIR 100 UNIT/ML X5UNITS SUBQ SCH ×2 (08:57→21:31)
[2021-05-12] MEDS: Docusate Oral Soln 100 MG/10 ML UDC PO SCH ×2 (08:57→21:00)
[2021-05-12 10:41] LABS: Basophils # 0.1 K/mcL (0.0-0.2); Basophils % 0.3 %; Eosinophils # 0.3 K/mcL (0.0-0.6); Hematocrit 41.1 % (37.5-50.1); Hemoglobin 13.2 g/dL (12.9-16.9); Immature Granulocytes % 0.3 % (0-4); Lymphocytes # 1.2 K/mcL (0.6-4.6); Lymphocytes % 8.5 %; Mean Corpuscular HGB Conc 32.1 g/dL (31.6-35.5); Mean Corpuscular Hemoglobin 29.9 pg (28.0-33.3); Mean Platelet Volume 11.7 fL (9.4-12.4); Monocytes # 1.4 K/mcL (0.0-1.3); Neutrophils # 11.3 K/mcL (1.6-8.9); Platelet Count 218 K/mcL (140-400); Red Blood Count 4.42 M/mcL (4.19-5.50); Red Cell Distribution Width 13.6 % (11.5-14.5); Segmented Neutrophils % 78.9 %; White Blood Count 14.3 K/mcL (4.3-11.1)
[2021-05-12 11:11] LABS: BUN/Creatinine Ratio 27 (6-26); Blood Urea Nitrogen 21 mg/dL (6-20); Calcium 8.8 mg/dL (8.6-10.3); Carbon Dioxide 30 mEq/L (23-29); Chloride 107 mEq/L (98-107); Glucose 198 mg/dL (70-105); Magnesium 1.9 mg/dL (1.6-2.6); Osmolality,Calculated 307 (280-300); Phosphorous 1.9 mg/dL (2.7-4.5); Potassium 3.3 mEq/L (3.5-5.1); Sodium 144 mEq/L (136-145); eGFR For African Americans > 60 (> 60); eGFR For Non-African Americans > 60 (> 60)
[2021-05-12] MEDS: Insulin LISPRO 300 UNITS/3 ML VIAL SUBQ SCH ×2 (12:12→17:30)
[2021-05-12 15:44] LABS: Adenovirus Not Detected (Not Detect); Bordetella Pertussis Not Detected (Not Detect); Chlamydophila pneumoniae Not Detected (Not Detect); Coronavirus 229E Not Detected (Not Detect); Coronavirus HKU1 Not Detected (Not Detect); Coronavirus NL63 Not Detected (Not Detect); Coronavirus OC43 Not Detected (Not Detect); Human Metapneumovirus Not Detected (Not Detect); Human Rhinovirus/Enterovirus Not Detected (Not Detect); Influenza A Subtype 2009 H1 Not Detected (Not Detect); Influenza B Not Detected (Not Detect); Mycoplasma pneumoniae Not Detected (Not Detect); Parainfluenza Virus 1 Not Detected (Not Detect); Parainfluenza Virus 2 Not Detected (Not Detect); Parainfluenza Virus 3 Not Detected (Not Detect); Parainfluenza Virus 4 Not Detected (Not Detect); Respiratory Syncytial Virus Not Detected (Not Detect)
[2021-05-12 15:47] LABS: SARS-CoV-2 DETECTED (Not Detect)
[2021-05-12] MEDS ORDERED: Clinimix 5%-20% SOLUTION 2,000 ML with MVI, adult with vitamin K 10 ML, Sodium Acetat... IVC SCH (17:00)
[2021-05-12] MEDS ORDERED: Clinimix 5%-20% SOLUTION 2,000 ML, Parenteral Amino Acid 10% 0 ML with MVI, adult with... IVC SCH (17:00)
[2021-05-12] MEDS ORDERED: Insulin LISPRO 300 UNITS/3 ML VIAL SUBQ SCH (21:00)
[2021-05-12] MEDS: QUEtiapine Fumarate 25 MG TABLET PO SCH (21:10)
[2021-05-13] MEDS: Piperacillin/Tazobactam 3.375 GM in 0.9 % Sodium Chloride Mini Bag 100 ML IVPB SCH ×4 (05:51→22:00)
[2021-05-13] MEDS: *HR* Enoxaparin 40 MG/0.4 ML SYRINGE SQ SCH ×2 (05:52→17:21)
[2021-05-13 06:12] LABS: Hematocrit 39.3 % (37.5-50.1); Hemoglobin 12.6 g/dL (12.9-16.9); Mean Corpuscular HGB Conc 32.1 g/dL (31.6-35.5); Mean Corpuscular Hemoglobin 29.8 pg (28.0-33.3); Mean Corpuscular Volume 92.9 fL (83.0-100.0); Mean Platelet Volume 11.5 fL (9.4-12.4); Platelet Count 202 K/mcL (140-400); Red Blood Count 4.23 M/mcL (4.19-5.50); Red Cell Distribution Width 13.7 % (11.5-14.5); White Blood Count 10.3 K/mcL (4.3-11.1)
[2021-05-13 06:27] LABS: BUN/Creatinine Ratio 20 (6-26); Blood Urea Nitrogen 18 mg/dL (6-20); Calcium 8.6 mg/dL (8.6-10.3); Carbon Dioxide 29 mEq/L (23-29); Chloride 106 mEq/L (98-107); Glucose 121 mg/dL (70-105); Magnesium 1.9 mg/dL (1.6-2.6); Osmolality,Calculated 297 (280-300); Phosphorous 2.8 mg/dL (2.7-4.5); Potassium 3.6 mEq/L (3.5-5.1); Sodium 142 mEq/L (136-145); eGFR For African Americans > 60 (> 60); eGFR For Non-African Americans > 60 (> 60)
[2021-05-13] MEDS: Potassium Chloride Elixir 20 MEQ/15 ML UDC PO SCH (08:59)
[2021-05-13] MEDS ORDERED: DilTIAZem CD (24hr) 240 MG CAP.ER.24H PO SCH (09:00)
[2021-05-13] MEDS: Insulin DETEMIR 100 UNIT/ML X5UNITS SUBQ SCH (09:04)
[2021-05-13] MEDS: Insulin LISPRO 300 UNITS/3 ML VIAL SUBQ SCH ×2 (09:04→11:37)
[2021-05-13] MEDS ORDERED: Insulin LISPRO 300 UNITS/3 ML VIAL SUBQ SCH ×2 (12:25→21:00)
[2021-05-13] MEDS ORDERED: Clinimix 5%-20% SOLUTION 2,000 ML with MVI, adult with vitamin K 10 ML, Sodium Acetat... IVC SCH (17:00)
[2021-05-13] MEDS ORDERED: Clinimix 5%-20% SOLUTION 2,000 ML, Parenteral Amino Acid 10% 0 ML with MVI, adult with... IVC SCH (17:00)
[2021-05-14 00:48] VITALS: PULSE 98
[2021-05-14] MEDS: *HR* Enoxaparin 40 MG/0.4 ML SYRINGE SQ SCH (05:45)
[2021-05-14] MEDS: Piperacillin/Tazobactam 3.375 GM in 0.9 % Sodium Chloride Mini Bag 100 ML IVPB SCH (05:48)
[2021-05-14 05:57] VITALS: BP 121/84; TEMP 97.9; O2SAT 90
[2021-05-14 06:55] LABS: BUN/Creatinine Ratio 19 (6-26); Blood Urea Nitrogen 18 mg/dL (6-20); Calcium 8.7 mg/dL (8.6-10.3); Carbon Dioxide 27 mEq/L (23-29); Chloride 103 mEq/L (98-107); Glucose 200 mg/dL (70-105); Magnesium 1.9 mg/dL (1.6-2.6); Osmolality,Calculated 294 (280-300); Phosphorous 2.8 mg/dL (2.7-4.5); Potassium 3.2 mEq/L (3.5-5.1); Sodium 138 mEq/L (136-145); eGFR For African Americans > 60 (> 60); eGFR For Non-African Americans > 60 (> 60)
[2021-05-14] MEDS ORDERED: Insulin DETEMIR 100 UNIT/ML X5UNITS SUBQ SCH (09:00)
[2021-05-14] MEDS ORDERED: DilTIAZem CD (24hr) 180 MG CAP.ER.24H PO SCH (09:00)
[2021-05-14] MEDS: Potassium Chloride Elixir 20 MEQ/15 ML UDC PO SCH (09:04)
== END 2021-05-14 12:40 | disposition home health service (06) | DRG 207 ==
LOC: SUATTDRO 12:21 → ICNU 12:21 → 2NENU 05-11 14:33
PROVIDERS: ADMIT Internal Medicine; ATTEND Internal Medicine